=== PATIENT | female | born 1950 | race Caucasian/White ===

== ENCOUNTER 2018-09-19 09:57 | Outpatient (REF) | payer MEDICARE, SELFPAY ==
[2018-09-19 19:33] LABS: Anion Gap 8.1 mmol/L (3-11); BUN 22 mg/dL (7-18); C-Reactive Protein 0.66 mg/dL (0.0-0.3); CO2 29.9 mmol/L (21.0-32.0); CREATININE 0.87 mg/dL (0.55-1.02); Calcium 9.4 mg/dL (8.5-10.1); Chloride 101 mmol/L (98-107); Glucose 321 mg/dL (70-100); Potassium 4.1 mmol/L (3.5-5.1); Sodium 139 mmol/L (136-145); TSH 2.73 uIU/mL (0.358-3.74)
[2018-09-19 20:55] LABS: ESR 10 MM/HR (0-30)
== END 2018-09-19 10:17 ==
LOC: NCHCN 09:57
PROVIDERS: PCP Internal Medicine; Visit Provider Physician Assistant Medical
DX: E11.9 Type 2 diabetes mellitus without complications (principal); M35.3 Polymyalgia rheumatica
CPT/HCPCS: 80048; 85652; 84443; 86140

== ENCOUNTER 2019-04-25 09:34 | Outpatient (REF) | payer MEDICARE, SELFPAY ==
[2019-04-25 19:43] LABS: Anion Gap 9.2 mmol/L (3-11); BUN 19 mg/dL (7-18); CO2 27.8 mmol/L (21.0-32.0); CREATININE 0.76 mg/dL (0.55-1.02); Calcium 9.3 mg/dL (8.5-10.1); Calculated LDL 112 mg/dL; Chloride 101 mmol/L (98-107); Cholesterol 174 mg/dL (<200); Glucose 169 mg/dL (74-106); HDL Cholesterol 49 mg/dL (40-60); Sodium 138 mmol/L (136-145); Triglyceride 66 mg/dL (<150)
== END 2019-04-25 09:54 ==
LOC: NCHCN 09:34
PROVIDERS: PCP Internal Medicine; Visit Provider Nurse Practitioner Family
DX: E78.5 Hyperlipidemia, unspecified (principal); I10 Essential (primary) hypertension
CPT/HCPCS: 80048; 80061

== ENCOUNTER 2019-07-26 09:52 | Outpatient (REF) | payer MEDICARE, SELFPAY ==
[2019-07-26 20:20] LABS: COMMENT (LAB VIEW ONLY) 41.06 mg/dL
== END 2019-07-26 10:12 ==
LOC: NCHCN 09:52
PROVIDERS: PCP Internal Medicine; Visit Provider Nurse Practitioner Family
DX: E11.9 Type 2 diabetes mellitus without complications (principal)
CPT/HCPCS: 82043; 82570

== ENCOUNTER 2020-03-26 11:48 | Outpatient (REF) | payer MEDICARE, SELFPAY ==
[2020-03-26 20:19] LABS: ALT 27 U/L (14-59); AST 16 U/L (15-37); Albumin 3.7 g/dL (3.4-5.0); Alkaline Phosphatase 86 U/L (46-116); Anion Gap 7.7 mmol/L (3-11); BUN 20 mg/dL (7-18); Bilirubin, Total 1.5 mg/dL (0.2-1.0); CO2 27.3 mmol/L (21.0-32.0); CREATININE 0.89 mg/dL (0.55-1.02); Calcium 9.2 mg/dL (8.5-10.1); Calculated LDL 124 mg/dL (<100); Chloride 100 mmol/L (98-107); Cholesterol 196 mg/dL (<200); Glucose 263 mg/dL (74-106); HDL Cholesterol 47 mg/dL (40-60); Potassium 3.6 mmol/L (3.5-5.1); Sodium 135 mmol/L (136-145); Total Protein 7.2 g/dL (6.4-8.2); Triglyceride 127 mg/dL (<150)
== END 2020-03-26 12:08 ==
LOC: NCHCN 11:48
PROVIDERS: PCP Internal Medicine; Visit Provider Nurse Practitioner Family
DX: E11.9 Type 2 diabetes mellitus without complications (principal); I10 Essential (primary) hypertension; E78.5 Hyperlipidemia, unspecified
CPT/HCPCS: 80053; 80061; 83036

== ENCOUNTER 2020-10-15 21:20 | Outpatient (REF) | payer MEDICARE, SELFPAY ==
[2020-10-15 17:34] LABS: Hemoglobin A1C 10.8 % (<5.7)
[2020-10-15 17:50] LABS: ALT 28 U/L (14-59); AST 14 U/L (15-37); Albumin 3.8 g/dL (3.4-5.0); Alkaline Phosphatase 88 U/L (46-116); BUN 20 mg/dL (7-18); Bilirubin, Total 1.3 mg/dL (0.2-1.0); CREATININE 0.8 mg/dL (0.55-1.02); Calcium 9.3 mg/dL (8.5-10.1); Calculated LDL 122 mg/dL (<100); Chloride 103 mmol/L (98-107); Cholesterol 188 mg/dL (<200); Glucose 224 mg/dL (74-106); HDL Cholesterol 46 mg/dL (40-60); Potassium 4.2 mmol/L (3.5-5.1); Sodium 140 mmol/L (136-145); Total Protein 7.2 g/dL (6.4-8.2); Triglyceride 103 mg/dL (<150)
== END 2020-10-15 21:21 | disposition home or self-care (01) ==
LOC: NCHCN 21:20
PROVIDERS: PCP Internal Medicine; Visit Provider Nurse Practitioner Family
DX: E11.9 Type 2 diabetes mellitus without complications (principal); I10 Essential (primary) hypertension; E78.5 Hyperlipidemia, unspecified
CPT/HCPCS: 80053; 80061; 83036

== ENCOUNTER 2021-02-11 10:25 | Outpatient (REF) | payer MEDICARE, SELFPAY ==
[2021-02-11 22:04] LABS: COMMENT (LAB VIEW ONLY) 28.26 mg/dL
== END 2021-02-11 10:26 | disposition home or self-care (01) ==
LOC: NCHCN 10:25
PROVIDERS: PCP Internal Medicine; Referring Provider Nurse Practitioner Family; Visit Provider Nurse Practitioner Family
DX: E11.9 Type 2 diabetes mellitus without complications (principal)
CPT/HCPCS: 82043; 82570

== ENCOUNTER → 2022-01-16 00:27 | Outpatient (CLI) | payer MEDICARE, SELFPAY ==
--- OUTSIDE RECORDS SUMMARY | 2022-01-16 00:31 | XMS_ITS | Encounter Summary ---
:1950 Author Organization [facility] [place] [address] Care Team Providers Name Role Phone Moe Bynum MD Primary Care Provider Reason for Referral Physical Therapy (Routine) - Closed by system - Referral Specialty Diagnoses / Procedures Referred By Contact Refer red To Contact Physical Therapy Diagnoses Lumbar stenosis Brendan Smart MD [facility] [place] [address] Referral ID Status Reason Start Expiration Visits Visits Date Date Requested Authorized [id number] Closed by Evaluate and 10/10/2013 1 1 system - Treat 3 Referral Reason for Visit Reason Comments Back Pain Bilateral Leg Pain Encounter Details Date Type Department Care Team Description 04/13/2013 Office Visit [facility] at Brendan Smart, Lumbar s tenosis Maria MORTON (Primary Dx) [facility] [address] [place] [facility] [id number] [id number] [phone] Social History Tobacco Use Types Packs/Day Years Used Date Never Smoker Sex Assigned at Date Recorded Not on file documented as of this encounter Last Filed Vital Signs Vital Sign Reading Time Taken Comments Blood Pressure 132/82 04/13/2013 11:48 AM EST Pulse - - Temperature - - Respiratory Rate - - Oxygen Saturation - - Inhaled Oxygen Concentration - - Weight 59 kg (130 lb) 04/13/2013 11:48 AM EST Height 154.9 cm (5' 1) 04/13/2013 11:48 AM EST Body Mass Index 24.56 04/13/2013 11:48 AM EST documented in this encounter Patient Instructions Patient InstructionsBlanca Montiel LPN - 04/13/2013 11:55 AM EST I would like you to sign up for myD-H, which will give you secure online access to your electronic medical record at [facility] and the ability to communicate with your health care team when and where it???s most convenient for you. With myD-H you will be able to: - look at parts of your medical record including test results and office notes - send and receive messages to/from me and your other providers - renew prescriptions - schedule appointments. To sign up, go to [email or web address] and click I have an activation code and follow the instructions. Here is your activation code: [email or web address] Expires: 05/28/2013 11:55 AM Remember, myD-H is NOT for urgent needs! Always dial 911 for medical emergencies. documented in this encounter Progress Notes Brendan Smart MD - 04/13/2013 12:35 PM EST CHIEF COMPLAINT: Bilateral lower extremity pain greater than low back pain. HISTORY OF PRESENT ILLNESS: Ms. Alberto is a 62-year-old female I am seeing in consultation for Giovanna Camilo in regards to her back pain that radiates to her bilateral buttocks, posterior thighs, and posterolateral legs. This began back in September, and it was insidious in onset. The leg pain come on if she is walking on uneven ground, coughing, or sneezing. The leg pain tends to be relieved if she sits, though prolonged sitting does cause her some back pain. She is currently able to stand for a couple of hours at a time, and she has not noted any walking limitation on even ground, though on uneven ground her walking is limited by the pain that goes to her legs. She did have some left lower extremity numbness that is now resolved. She has not noted any weakness. It does not bother her at night. She denies constitutional symptoms or change in her bowel or bladder function. She is intermittently taking Aleve that gives her some help. She has done physical therapy that I think has been primarily modality based, and also used the TENS unit that gives her some short term relief. She has not had any injections or prior spine surgery. PAST MEDICAL HISTORY: Hypertension. PAST SURGICAL HISTORY: None. MEDICATIONS: Reviewed and are in eD-H. ALLERGIES: REVIEWED AND ARE IN ED-H. FAMILY HISTORY: Rheumatoid arthritis and cancer. 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 She has not missed work related to this, but she does note she is much more fatigued and uncomfortable by the end of the day than she has been in the past. She does not smoke or drink. REVIEW OF SYSTEMS: All negative except musculoskeletal as above. PHYSICAL EXAMINATION: The patient is 5 feet tall, 130 pounds. General: The patient is comfortable, in no acute distress. Back: Her back is nontender to palpation. She can flex 90 degrees and extend 20 degrees with extension causing her some bilateral buttock pain. Neurologic exam: She walks with a normal gait. She can heel walk and toe walk. Motor exam reveals 5/5 strength in all lower extremity motor groups. She has normal sensory exam. Reflexes are 2/4 at the knees and ankles and symmetric. Straight leg raise is negative bilaterally. She has no clonus, Babinski is negative. Hip exam: She has normal, painless range of motion of both hips. Vascular exam: She has palpable pulses bilaterally. IMAGING: MRI of the lumbar spine from 04/04/2013 demonstrates no significant degenerative changes other than a broad-based disk bulge at L3-L4 that in combination with some moderate facet hypertrophy result in some moderate central and lateral recess stenosis at that level. She has no nerve compression elsewhere. ASSESSMENT/PLAN: Ms. Alberto is a 62-year-old female who presents with back pain radiating to both lower extremities, that seems most likely related to the moderate stenosis she has at L3-L4. I suggested treatment options for this included continued Aleve, exercise-based physical therapy, epidural steroid injections, and possibly focal decompression if all other treatment options fail. She certainly feels that she is functioning at a reasonable level at this point though would like to get some symptom relief. She wants to proceed with therapy, so I gave her a prescription for exercise-based therapy. She also will try taking the Aleve somewhat more frequently to see if this helps. If her symptoms persist despite this and she wants to try an injection, she certainly can call us, and we can set up a lumbar epidural steroid injection. It seems unlikely that she will get to a point that she needs for this in the near term, though if she wants to discuss this further, she could return to see me with AP, lateral, and flexion-extension x-rays of the lumbar spine. documented in this encounter Plan of Treatment Scheduled Referrals Name Type Priority Associated Diagnoses Order S chedule Referral to Outpatient Referral Routine Lumbar stenosis Order ed: Physical Therapy 04/13/2013 documented as of this encounter Visit Diagnoses Diagnosis Lumbar stenosis - Primary Spinal stenosis, lumbar region, without neurogenic claudication documented in this encounter Care Teams Pool Nurse Relationship Specialty Start Date End Date Moe Bynum MD PCP - General 04/13/[address] [place] [id number] documented as of this encounter
--- OUTSIDE RECORDS SUMMARY | 2022-01-16 00:31 | XMS_ITS | Clinical Summary ---
:1950 Author Organization [place] [address] Care Team Providers Name Role Phone Moe Bynum MD Primary Care Provider Allergies No known active allergies Medications Medication Sig Dispensed Refills Start Date End Date Status triamterene-hydrochlor Take 1 capsule by 0 Active othiazide (DYAZIDE) mouth every 37.5-25 mg per capsule morning. Active Problems Problem Noted Date Lumbar stenosis 04/13/2013 Social History Tobacco Use Types Packs/Day Years Used Date Never Smoker Sex Assigned at Date Recorded Not on file Last Filed Vital Signs Vital Sign Reading Time Taken Comments Blood Pressure 132/82 04/13/2013 11:48 AM EST Pulse - - Temperature - - Respiratory Rate - - Oxygen Saturation - - Inhaled Oxygen Concentration - - Weight 59 kg (130 lb) 04/13/2013 11:48 AM EST Height 154.9 cm (5' 1) 04/13/2013 11:48 AM EST Body Mass Index 24.56 04/13/2013 11:48 AM EST Plan of Treatment Health Maintenance Due Date Last Done Comments Covid-19 Vaccine (#1) 11[birth year]10/1955 Hepatitis C Screening 11/10/1969 Tdap adult 11/10/1970 Tetanus vaccine 11/10/1970 Breast Cancer Share Decision Needed 1991 Colonoscopy 11/10/1996 Breast Cancer screening 11/10/2001 Zoster vaccine (1 of 2) 11/10/2001 Advance Directive 11/10/2006 Bone Density Scan 11/10/2016 Pneumoccocal Vaccine: 65+ (1 - PCV) 11/10/2016 Influenza (Flu) vaccine (1 of 1 - Influenza standard 01/29/2022 series) Procedures Procedure Name Priority Date/Time Associated Diagnosis Comme nts ORDS - PROVIDER 01/14/2022 12:00 AM Resul ts for this CARE SCAN EDT procedure are i n the results section. ORDS - PROVIDER 01/14/2022 12:00 AM Resul ts for this CARE SCAN EDT procedure are i n the results section. from Last 3 Months Results SCAN DOC: ORDS - PROVIDER CARE (01/14/2022 12:00 AM EDT)Only the most recent of2 resultswithin the time period is included. Narrative 01/14/2022 12:00 AM EDT This result has an attachment that is no t available. Ordered by an unspecified provider. Scanning Provider MEDIA MGR SCAN EXT ORDR/RSLT from Last 3 Months Insurance Payer Benefit Plan / Subscriber ID Effective Phone Address T ype Group Dates MEDICARE MEDICARE PART A [id number] 2021-Prese [phone] [facility] [place] [phone] AARP SUPPLEMENT AARP SUPPLEMENT [id number] 2021-Prese [address] [place] [address] [place] [id number] 2015-Prese [phone] [address] [place] [address] [address] (Home) [place] [phone] [place], [place] (Work) [address] Care Teams Fender Finisher Relationship Specialty Start Date End Date Moe Bynum MD PCP - General 04/13/13 [address] [place] [address]
--- OUTSIDE RECORDS SUMMARY | 2022-01-16 00:31 | XMS_ITS | Encounter Summary ---
:1950 Author Organization [facility] [address] Care Team Providers Name Role Phone Giovanna Camilo Primary Care Provider Encounter Details Date Type Department Care Team Description 04/04/2013 Orders Only [facility] Brendan Smart MD [facility] [place] [address] [facility] [phone] [place], [place] [address] (Wo rk) Social History Tobacco Use Types Packs/Day Years Used Date Never Assessed Sex Assigned at Date Recorded Not on file documented as of this encounter Plan of Treatment Pending Results Name Type Priority Associated Diagnoses Date/Ti nc Film Library- Storage Imaging Routine 2012 3:03 PM EST only MR Spine documented as of this encounter Visit Diagnoses Not on filedocumented in this encounter Care Teams Cottage Master Relationship Specialty Start Date End Date Giovanna Camilo PA PCP - General 04/07/13 04/12/13 documented as of this encounter
--- NOTE | 2022-01-16 10:25 | DI.MRI_ITS ---
Exam(s) MR ABDOMEN WO EXAM: MR ABDOMEN WO CLINICAL HISTORY: ABD PAIN R10.9 TECHNIQUE: Multiplanar multisequence MRI of the Abdomen was performed. MRCP sequences also perform ed. COMPARISON: CT CT ABD/PELVIS W/ CONTRAST from 11/07/2021 US US ABD LTD - ONE ORGAN/QUAD from 11/12/2021 from [facility] FINDINGS: Exam is somewhat limited by motion. Liver: Unremarkable. Pancreas: Unremarkable. Gallbladder and Bile Ducts: There is focal thickening of the fundus of the gallbladder with low signa l foci which could represent a Phrygian cap with stones versus focal adenomyomatosis. Remainder of t he gallbladder appears normal. There is no biliary dilatation. Adrenals: Unremarkable. Kidneys: Cysts near the upper pole of the left kidney Spleen: Unremarkable. Aorta: Unremarkable. Soft Tissues: Unremarkable. Bone: Unremarkable. Lymph Nodes: Unremarkable. Bowel: Diverticulosis. 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 DATA REPOSITORY:
== END ==
PROVIDERS: PCP Internal Medicine; Visit Provider Nurse Practitioner Family
DX: R93.5 Abnormal findings on diagnostic imaging of other abdominal regions, including retroperitoneum (principal)
CPT/HCPCS: 74181

== ENCOUNTER 2022-02-26 19:30 | Outpatient (REF) | payer MEDICARE, SELFPAY ==
[2022-02-26 19:18] LABS: ALT 25 U/L (14-59); AST 15 U/L (15-37); Albumin 3.9 g/dL (3.4-5.0); Alkaline Phosphatase 74 U/L (46-116); Anion Gap 6.9 mmol/L (3-11); BUN 27 mg/dL (7-18); Bilirubin, Total 0.8 mg/dL (0.2-1.0); CO2 29.1 mmol/L (21.0-32.0); CREATININE 0.8 mg/dL (0.55-1.02); Calcium 9.4 mg/dL (8.5-10.1); Calculated LDL 136 mg/dL (<100); Chloride 102 mmol/L (98-107); Cholesterol 215 mg/dL (<200); Estimated GFR 79.22 (mL/min/1.73m2); Glucose 175 mg/dL (74-106); HDL Cholesterol 52 mg/dL (40-60); Potassium 4.1 mmol/L (3.5-5.1); Sodium 138 mmol/L (136-145); Total Protein 7.8 g/dL (6.4-8.2); Triglyceride 139 mg/dL (<150)
[2022-02-26 19:54] LABS: Hemoglobin A1C 8.4 % (<5.7)
== END 2022-02-26 19:31 | disposition home or self-care (01) ==
LOC: NCHCN 19:30
PROVIDERS: PCP Internal Medicine; Visit Provider Nurse Practitioner Family
DX: E11.9 Type 2 diabetes mellitus without complications (principal); I10 Essential (primary) hypertension; E78.5 Hyperlipidemia, unspecified
CPT/HCPCS: 80053; 80061; 83036

== ENCOUNTER 2022-11-19 13:16 | Outpatient (REF) | payer MEDICARE, SELFPAY ==
[2022-11-19 19:05] LABS: ALT 28 U/L (14-59); AST 20 U/L (15-37); Albumin 3.8 g/dL (3.4-5.0); Alkaline Phosphatase 80 U/L (46-116); Anion Gap 8.8 mmol/L (3-11); BUN 23 mg/dL (7-18); Bilirubin, Total 0.9 mg/dL (0.2-1.0); CO2 29.2 mmol/L (21.0-32.0); CREATININE 0.9 mg/dL (0.55-1.02); Calcium 9.7 mg/dL (8.5-10.1); Chloride 103 mmol/L (98-107); Estimated GFR 68.35 (mL/min/1.73m2); Glucose 252 mg/dL (74-106); Potassium 4.4 mmol/L (3.5-5.1); Sodium 141 mmol/L (136-145); Total Protein 7.9 g/dL (6.4-8.2)
== END 2022-11-19 13:17 | disposition home or self-care (01) ==
LOC: NCHCN 13:16
PROVIDERS: PCP Internal Medicine; Visit Provider Nurse Practitioner Family
DX: E11.9 Type 2 diabetes mellitus without complications (principal)
CPT/HCPCS: 80053

== ENCOUNTER 2023-07-26 18:20 | Outpatient (REF) | payer MEDICARE, SELFPAY ==
[2023-07-26 19:55] LABS: Bilirubin Negative (Negative); Blood Negative (Negative); Clarity Cloudy (Clear); Glucose 500 mg/dL (Negative); Ketones 15 mg/dL (Negative); Leukocyte Esterase Trace (Negative); Nitrite Positive (Negative); Urobilinogen 0.2 mg/dL (Up to 0.2)
[2023-07-26 20:05] LABS: Bacteria Many HPF (Negative); C & S Indicated? Yes; Casts Negative LPF (Negative); Crystals Negative HPF (Negative); Epithelial Cells Few HPF (Negative); Mucus Negative (Negative); RBC 0-2 HPF (0-2)
== END 2023-07-26 18:21 | disposition home or self-care (01) ==
LOC: NCHCN 18:20
PROVIDERS: PCP Internal Medicine; Visit Provider Nurse Practitioner Family
DX: R10.32 Left lower quadrant pain (principal); R82.998 Other abnormal findings in urine
CPT/HCPCS: 87077; 81003; 81015; 87086; 87186

== ENCOUNTER 2023-11-23 13:43 | Outpatient (REF) | payer MEDICARE, SELFPAY ==
[2023-11-23 18:17] LABS: Anion Gap 10.1 mmol/L (3-11); BUN 23 mg/dL (7-18); CO2 27.9 mmol/L (21.0-32.0); CREATININE 0.9 mg/dL (0.55-1.02); Calcium 9.7 mg/dL (8.5-10.1); Chloride 103 mmol/L (98-107); Estimated GFR 67.92 (mL/min/1.73m2); Glucose 233 mg/dL (74-106); Sodium 141 mmol/L (136-145)
== END 2023-11-23 13:44 | disposition home or self-care (01) ==
LOC: NCHCN 13:43
PROVIDERS: PCP Internal Medicine; Visit Provider Nurse Practitioner Family
DX: R79.89 Other specified abnormal findings of blood chemistry (principal)
CPT/HCPCS: 80048

== ENCOUNTER 2024-04-17 15:40 | Outpatient (REF) | payer MEDICARE, SELFPAY ==
[2024-04-17 20:01] LABS: Anion Gap 8.2 mmol/L (3-11); BUN 22 mg/dL (7-18); CO2 28.8 mmol/L (21.0-32.0); Calcium 9.7 mg/dL (8.5-10.1); Calculated LDL 114 mg/dL (<100); Chloride 103 mmol/L (98-107); Cholesterol 194 mg/dL (<200); Estimated GFR 59.86 (mL/min/1.73m2); Glucose 210 mg/dL (74-106); HDL Cholesterol 61 mg/dL (40-60); Potassium 4.6 mmol/L (3.5-5.1); Sodium 140 mmol/L (136-145); Triglyceride 95 mg/dL (<150)
[2024-04-17 20:11] LABS: COMMENT (LAB VIEW ONLY) 34.19 mg/dL
== END 2024-04-17 15:41 | disposition home or self-care (01) ==
LOC: NCHCN 15:40
PROVIDERS: PCP Internal Medicine; Visit Provider Nurse Practitioner Family
DX: E11.9 Type 2 diabetes mellitus without complications (principal)
CPT/HCPCS: 80048; 80061; 82043; 82570

== ENCOUNTER 2024-05-18 15:23 | Outpatient (CLI) | payer MEDICARE, SELFPAY ==
--- NOTE | 2024-05-18 09:00 | DI.RAD_ITS ---
Exam(s) XR ANKLE LT COMPLETE EXAM: XR ANKLE LT COMPLETE CLINICAL HISTORY: F/U FX TECHNIQUE: 2D digital imaging was performed of the left ankle. Three images were obtained. AP, lat eral and oblique views were obtained. COMPARISON: CR XR ANKLE COMPLETE MIN 3V LT from 03/01/2024 FINDINGS: BONES: There has been no change in alignment of the distal left fibular fracture. The fracture line is much less well visualized suggesting interval healing. There is a small enthesophyte at the poste rior calcaneus. There is a small plantar calcaneal spur. No bony destructive lesion is seen. JOINTS:The ankle mortise is normally aligned. SOFT TISSUE: Normal. IMPRESSION: Stable alignment of the distal fibular fracture which shows evidence of healing. DATA REPOSITORY: RADIATION DOSE DELIVERED:
== END 2024-05-18 15:24 | disposition home or self-care (01) ==
LOC: DIORS 15:24
PROVIDERS: PCP Internal Medicine; Referring Provider Internal Medicine; Visit Provider Physician Assistant
DX: S82.832A Other fracture of upper and lower end of left fibula, initial encounter for closed fracture; X58.XXXA Exposure to other specified factors, initial encounter; S89.92XA Unspecified injury of left lower leg, initial encounter
CPT/HCPCS: 99203; 73610

== ENCOUNTER 2025-04-05 10:10 | Outpatient (REF) | payer MEDICARE, SELFPAY ==
[2025-04-05 20:02] LABS: ALT 21 U/L (14-59); AST 20 U/L (15-37); Albumin 3.6 g/dL (3.4-5.0); Alkaline Phosphatase 87 U/L (46-116); Anion Gap 8.1 mmol/L (3-11); BUN 20 mg/dL (7-18); Bilirubin, Total 0.7 mg/dL (0.2-1.0); CO2 28.9 mmol/L (21.0-32.0); Calcium 9.2 mg/dL (8.5-10.1); Chloride 101 mmol/L (98-107); Cholesterol 201 mg/dL (<200); Glucose 220 mg/dL (74-106); HDL Cholesterol 55 mg/dL (>or=50); Potassium 4.8 mmol/L (3.5-5.1); Sodium 138 mmol/L (136-145); Total Protein 7.9 g/dL (6.4-8.2)
== END 2025-04-05 10:11 | disposition home or self-care (01) ==
LOC: NCHCN 10:10
PROVIDERS: PCP Internal Medicine; Visit Provider Nurse Practitioner Family
DX: I10 Essential (primary) hypertension (principal); E78.5 Hyperlipidemia, unspecified
CPT/HCPCS: 80053; 80061